=== PATIENT | male | born 1975 | race Caucasian/White ===

== ENCOUNTER 2023-07-01 07:23 | Day surgery (SDC) | payer OTHER ==
[~2023-07-01] VITALS: Ht 188 cm; Wt 103.6 kg
[2023-07-01] MEDS ORDERED: fentaNYL CITRATE/PF 100 MCG/2 ML AMP ONE (07:56)
[2023-07-01] MEDS ORDERED: MEPERIDINE 100 MG INJ. 100 MG/ML VIAL ONE (07:56)
[2023-07-01] MEDS ORDERED: MIDAZOLAM HCL 5 MG/5 ML VIAL ONE (07:56)
[2023-07-01 10:57] VITALS: O2SAT 94
[2023-07-01 18:06] VITALS: BP_SYST 139; PULSE 78; RESP 18; TEMP 98.1
== END 2023-07-01 11:45 | disposition home or self-care (01) ==
LOC: SDS 07:23 → SMU 07:30 → SDS 11:45
PROVIDERS: ATTEND Internal Medicine Gastroenterology
DX: R19.4 Change in bowel habit (principal); D12.8 Benign neoplasm of rectum; R10.30 Lower abdominal pain, unspecified; K57.30 Diverticulosis of large intestine without perforation or abscess without bleeding; K64.8 Other hemorrhoids; I10 Essential (primary) hypertension; E78.5 Hyperlipidemia, unspecified; F41.9 Anxiety disorder, unspecified; G47.30 Sleep apnea, unspecified; K21.9 Gastro-esophageal reflux disease without esophagitis; M19.90 Unspecified osteoarthritis, unspecified site; Z98.890 Other specified postprocedural states; Z87.891 Personal history of nicotine dependence; Z79.899 Other long term (current) drug therapy
CPT/HCPCS: 99152; 45385; 82948; 88305; G0378; J2250; J2175; 45384; J3010